=== PATIENT | female | born 1990 | race Two or more races ===

== ENCOUNTER 2018-06-30 14:20 | Emergency (ER) | payer OTHER ==
[~2018-06-30] VITALS: Ht 152.4 cm; Wt 62.4 kg
[2018-06-30 14:47] LABS: Urine WBC None Seen /hpf (0 - 5)
[2018-06-30 15:33] LABS: Urine Bacteria NONE SEEN /hpf (None Seen); Urine Blood 3+ /uL (Negative); Urine Specific Gravity 1.002 (1.001-1.035)
[2018-06-30 20:04] VITALS: BP 120/79
== END 2018-06-30 21:28 | disposition home or self-care (01) ==
LOC: ER 14:20
DX: O03.9 Complete or unspecified spontaneous abortion without complication (principal); Z3A.01 Less than 8 weeks gestation of pregnancy
CPT/HCPCS: 36415; 76801; 81001; 84702